=== PATIENT | female | born 1945 | race Caucasian/White ===

== ENCOUNTER 2021-01-17 17:49 | Emergency (ER) | payer MEDICARE ==
[~2021-01-17] VITALS: Ht 160 cm; Wt 56.7 kg
[2021-01-17 18:03] VITALS: Ht 160 cm; Wt 56.7 kg
[2021-01-17] MEDS ORDERED: SINEMET 25-1001 EACH (18:08)
[2021-01-17 20:14] VITALS: BP 178/74
== END 2021-01-17 20:16 | disposition home or self-care (01) ==
LOC: D.ER 17:49
DX: S01.81XA Laceration without foreign body of other part of head, initial encounter (principal); W19.XXXA Unspecified fall, initial encounter; Y93.9 Activity, unspecified; Y92.9 Unspecified place or not applicable